=== PATIENT | male | born 1995 | race African-American/Black ===

== ENCOUNTER 2020-09-19 19:28 | Emergency (ER) | payer OTHER ==
[~2020-09-19] VITALS: Ht 185.4 cm; Wt 95.3 kg
[2020-09-19] MEDS ORDERED: MEDROLDOSEPACK PO (20:08)
[2020-09-19] MEDS ORDERED: AMOXICILLIN 50500 MG PO (20:08)
[2020-09-19 20:20] VITALS: BP 147/71
== END 2020-09-19 20:24 | disposition home or self-care (01) ==
LOC: M.ERS 19:28
DX: J02.0 Streptococcal pharyngitis (principal)